=== PATIENT | female | born 1985 | race Caucasian/White ===

== ENCOUNTER 2017-06-13 20:55 | Emergency (ER) | payer BC ==
--- NOTE | 2017-06-13 22:11 | ERNOTE ---
Chest Pain/Cardiac HPI Chief Complaint: Chest Pain Time Seen by Provider: 06/13/17 21:56 Source: patient Exam Limitations: no limitations Immunizations: IMMUNIZATION HX Immunizations Up to Date Yes History of Influenza Vaccine No Hx Pneumococcal Vaccination No Narrative: chest pressure and mild shortness of breath onset this morning then resolved. reoccured this afternoon and continued to worsen. Severity/Quality: moderate, pressure Location: central Chest Pain Radiation: no radiation Review of Systems - Review of Systems Constitutional: Present: recent illness - cold last week EYE: Present: no symptoms reported ENT: Present: nose congestion, nasal drainage - last week Respiratory: Present: shortness of breath. Absent: wheezing Cardiology: Present: See HPI Gastrointestinal/Abdominal: Absent: nausea, vomiting Genitourinary: Present: no symptoms reported Musculoskeletal: Absent: back pain, neck pain Skin: Absent: rash Neurological: Absent: emotional problems, weakness Endocrine: Absent: excessive sweating, flushing Hematologic/Lymphatic: Present: no symptoms reported Psych: Absent: anxiety - Patient's Past Medical History Patient History - Medical: No pertinent hx Patient History - Cardiac/Respiratory: No pertinent hx Patient History - Cancer: No Hx of Cancer Patient History - Surgical Procedures: , Other Patient History - Other: None LMP (females 10-50): this week LMP (Calendar): 06/12/17 - Social History Living Situations: home Abuse History: No History of abuse Psych History: No pertinent hx Smoking Status: Never smoker Have you smoked in the past 12 months: No Do you dip or chew tobacco: No Alcohol Use: rarely Drug Use: none - Immunizations Immunizations Up to Date: Yes Hx Pneumococcal Vaccination: No History of Influenza Vaccine: No Physical Exam - Physical Exam General Appearance: Present: wd/wn, alert, no apparent distress Head Exam: Present: normal inspection, no evidence of injury Ears, Nose, Throat: Present: nasal congestion - mild. Absent: pharyngeal erythema, pharyngeal swelling Neck: Present: normal inspection, nontender, supple Respiratory: Present: no respiratory distress, normal breath sounds, no accessory muscle use, lungs clear Cardiovascular/Chest: Present: regular rate, rhythm, no murmur, normal peripheral pulses Gastrointestinal/Abdominal: Present: nontender, nondistended, soft Back Exam: Present: normal inspection, normal range of motion, no vertebral tenderness Extremity Exam: Present: normal inspection, normal range of motion, no edema Neurological Exam: Present: alert, oriented, normal mood/affect, no motor/ sensory deficits, 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 Results and Orders: Laboratory Tests 06/13/17 06/13/17 06/13/17 22:15 22:15 22:15 WBC 11.2 H Hgb 14.3 Hct 41.0 Plt Count 248 Neutrophils % 76.9 H Lymphocytes % 17.5 L D-Dimer Less than 0.19 L Sodium 138 Potassium 3.2 L Chloride 101 Carbon Dioxide 23.5 L BUN 10 Creatinine 0.93 Random Glucose 104 Calcium 8.9 Total Bilirubin 0.5 AST 23 ALT 39 Alkaline Phosphatase 83 Troponin I Less than 0.017 Total Protein 7.8 Albumin 4.0 Serum HCG, Qual 06/13/17 22:15 WBC Hgb Hct Plt Count Neutrophils % Lymphocytes % D-Dimer Sodium Potassium Chloride Carbon Dioxide BUN Creatinine Random Glucose Calcium Total Bilirubin AST ALT Alkaline Phosphatase Troponin I Total Protein Albumin Serum HCG, Qual Negative - Vital Signs Patient's Vital Signs:: I have reviewed the patient's vital signs. Vital Signs: Vital Signs 06/13/17 06/13/17 21:10 21:21 Temperature 36.7 C 36.7 C Pulse Rate 119 H 105 H Respiratory 11 L 11 L Rate Blood Pressure 132/73 132/73 O2 Sat by Pulse 100 100 Oximetry - EKG EKG: no ST T wave changes, other - sinus tachycardia, pattern consistent with pulmonary disease EKG read: Interp. by me - X-Ray X-Ray #1 X-Ray: chest Interpretation: Interp. by me X-ray Comments: No infiltrate or effusion, some airbronchograms suggesting bronchitis. - Progress/Reassessment Chief Complaint: Chest Pain Departure Clinical Impression: Bronchitis - Departure Disposition: Home self-care Condition: Good Instructions: Acute Bronchitis, [id number] Additional Instructions: See your primary care provider if not improving in 5-7 days. Return to ER as needed. Referrals: H[facility] [Primary Care Provider] -
[2017-06-13 22:18] LABS: Hemoglobin 14.3 gm/dL (12.5-16.0); Mean Cell Volume 85.4 fl (78-100); Mean Corpuscular Hemoglobin 29.8 pg (27-31); Mean Corpuscular Hgb Conc 34.9 g/dl (32-36); Mean Platelet Volume 10.3 fl (6.0-9.5); Neutrophil # 8.6 K/mm3 (1.3-6.0); Neutrophil % 76.9 % (42-75.0); Platelet Count 248 K/mm3 (150-450); Red Cell Distribution Width 12.7 % (11.5-14.0); White Blood Count 11.2 K/mm3 (4.0-10.5)
[2017-06-13 22:35] LABS: ALT 39 U/L (19-67); AST 23 U/L (0-48); Alkaline Phosphatase * 83 U/L (50-170); Anion Gap 16.7 mmol/L (6.8-13.8); BUN/Creatinine Ratio 10.8 (9.0-21.6); Bilirubin, Total 0.5 mg/dL (0.0-1.1); Blood Urea Nitrogen 10 mg/dL (3-23); Ca. Corrected For Albumin 8.6 mg/dL (8.4-10.2); Calcium * 8.9 mg/dL (7.9-10.9); Carbon Dioxide 23.5 mmol/L (24-32.6); Chloride 101 mmol/L (97-106); Glucose * 104 mg/dL (70-110); Potassium 3.2 mmol/L (3.4-4.6); Sodium 138 mmol/L (132-142); Total Protein 7.8 gm/dL (6.2-8.2); Troponin I Less than 0.017 ng/ml (0.00-0.10)
[2017-06-13 23:50] VITALS: BP 108/67
== END 2017-06-13 23:49 | disposition home or self-care (01) ==
LOC: ER 20:55
DX: J40 Bronchitis, not specified as acute or chronic (principal)